=== PATIENT | female | born 1970 | race Caucasian/White ===

== ENCOUNTER 2017-03-07 09:56 | Emergency (ER) | payer OTHER ==
[2017-03-07 10:00] VITALS: BP 121/68; PULSE 75; TEMP 97.7; BMI 20.1
--- NOTE | 2017-03-07 11:18 | PDOC ---
History of Present Illness - General Chief Complaint: Pain Stated Complaint: PAIN/ NECK, ARM Time Seen by Provider: 03/07/17 10:22 History Source: Patient Exam Limitations: No Limitations - History of Present Illness Initial Comments: 03/07/17 11:18 With Belgian interpretation phone, patient came for evaluation of right arm intermittent tenderness that is spasmodic in nature. Patient reports having pain to her arm for 5 minutes, spontaneously resolved, then reoccurs. States this pain has been coming on and off for the past 2 weeks. I'll has moved into her upper neck and wraparound scalp to the right side. Denies any changes in exercise, heavy lifting, strenuous activity. Denies any recent trauma or car accident. Denies any incident with neck. Has taken no medication or treatment to relief of same. 03/07/17 11:19 03/07/17 11:36 Occurred: reports: just prior to arrival Severity: reports: mild, moderate Pain Location: reports: head, neck Method of Injury: Yes: unknown Modifying Factors: improves with: None Loss of Consciousness: no loss of consciousness Associated Symptoms (Fall): denies symptoms (denies chest pain, palpitations, shortness of breath, diaphoresis, or any other cardiac type related symptoms. Has no history of heart disease.) Past History - Travel Traveled outside of the country in the last 30 days: No Close contact w/someone who was outside of country & ill: No - Past Medical History Allergies/Adverse Reactions: Allergies Allergy/AdvReac Type Severity Reaction Status Date / Time No Known Allergies Allergy Verified 03/07/17 10:00 Home Medications: Ambulatory Orders Cyclobenzaprine HCl [Flexeril 10 mg] 10 mg PO BID PRN #14 tablet 03/07/17 GI Disorders: Yes (REFLUX) Hypercholesterolemia: Yes - Psycho/Social/Smoking Cessation Hx Anxiety: No Suicidal Ideation: No Smoking History: Never smoked Have you smoked in the past 12 months: No Hx Alcohol Use: No Drug/Substance Use Hx: No Substance Use Type: None Trauma Specific PMHX - Complaint Specific PMHX Back Injury: No Neck Injury: No Review of Systems - Review of Systems Able to Perform ROS?: Yes Is the patient limited Macedonian proficient: Yes Constitutional: Yes: See HPI. No: Symptoms Reported, Fever Respiratory: Yes: Symptoms reported, See HPI ABD/GI: Yes: See HPI, Other (no right upper quadrant tenderness or pain). No: Symptoms Reported, Constipated, Diarrhea, Nausea : No: Symptoms Reported Musculoskeletal: Yes: Symptoms Reported Neurological: Yes: Symptoms reported, See HPI, Headache, Numbness (with pain associated to the right arm) All Other Systems: Reviewed and Negative *Physical Exam - Vital Signs Last Vital Signs Temp Pulse Resp BP Pulse Ox 97.7 F 75 20 121/68 100 03/07/17 09:57 03/07/17 09:57 03/07/17 09:57 03/07/17 09:57 03/07/17 09:57 - Physical Exam General Appearance: Yes: Nourished, Appropriately Dressed, Apparent Distress, Mild Distress HEENT: positive: KATHLEEN, Normal ENT Inspection, Normal Voice, TMs Normal, Pharynx Normal Neck: positive: Tender (tenderness reproduced along the sternocleidomastoid insertions at occiput, which reproduces scalp tenderness to the right side and frontal headache pain that patient reported. Also has very tight tense musculature of the upper trapezius with mild spasm palpated. Range of motion is mildly limited but neck is supple. No C-spine tenderness), Supple. negative: Lymphadenopathy (R), Lymphadenopathy (L) Respiratory/Chest: positive: Lungs Clear, Normal Breath Sounds Gastrointestinal/Abdominal: positive: Soft. negative: Tender, Distended, Guarding, Rebound, Tenderness, Hepatomegaly, Spleenomegaly Extremity: positive: Normal Capillary Refill, Normal Inspection, Normal Range of Motion Integumentary: positive: Normal Color, Dry, Warm Neurologic: positive: tagman II-XII NML intact, Fully Oriented, Alert, Normal Mood/ Affect, Normal Response, Motor Strength 5/5 Progress Note - Progress Note Progress Note: Cervical spine/muscular spasm. Causing impingement, will treat with NSAIDs and cyclobenzaprine *DC/Admit/Observation/Transfer Diagnosis at time of Disposition: Cervical muscle strain Qualifiers: Encounter type: initial encounter Qualified Code(s): S16.1XXA - Strain of muscle, fascia and tendon at neck level, initial encounter - Discharge Dispostion Disposition: HOME Condition at time of disposition: Stable Admit: No - Prescriptions Prescriptions: Cyclobenzaprine HCl [Flexeril 10 mg] 10 mg PO BID PRN #14 tablet PRN Reason: spasm - Referrals Referrals: Billy Quiles MD [Primary Care Provider] - - Patient Instructions Printed Discharge Instructions: DI for Cervical Muscle Strain Additional Instructions: Rest, no heavy lifting or exercise until pain is resolved Hot soaks to neck and low back as often as possible/hot showers or Jacuzzis No massage or therapy until spasm is gone Continue ibuprofen 2-200 mg tablets every 6 hours for the next 3 days then as needed for pain and swelling Cyclobenzaprine 1-10mg every 8 hours as needed for spasm If not significant improvement within 24 hours with medication and rest regime, followup with private physician for change in medications and /or therapy.
[2017-03-07] MEDS ORDERED: KETOROLAC TROMETHAMINE 60 MG/2 ML VIAL IM ONE (11:21)
[2017-03-07] MEDS ORDERED: KETOROLAC TROMETHAMINE 60 MG/2 ML VIAL ONE (11:23)
== END 2017-03-07 11:42 | disposition home or self-care (01) ==
LOC: JERFT 09:56
PROC: 3E0233Z Introduction of Anti-inflammatory into Muscle, Percutaneous Approach (ICD-10-PCS; principal; 2017-03-07)
DX: S16.1XXA Strain of muscle, fascia and tendon at neck level, initial encounter (principal); K21.9 Gastro-esophageal reflux disease without esophagitis
CPT/HCPCS: 96372; 99281-25

== ENCOUNTER 2017-06-07 10:15 | Day surgery (SDC) | payer OTHER ==
[2017-06-06 14:45] VITALS: BMI 22.3
[2017-06-07 11:49] VITALS: TEMP 97.5
[2017-06-07 13:12] VITALS: BP 97/63; PULSE 66
--- NOTE | 2017-06-08 15:28 | PATH ---
Surgical Pathology Report Patient Name: THEE CLAIRE [facility]. Rec. #: [id number] /Age/Gender: 1970 (Age: 47) / F Account: [id number] Location: [facility]-ENDOSCOPY Taken: 06/07/2017 Received: 06/07/2017 Reported: 06/08/2017 Physicians: Jarrett Gonzalez M.D. Specimen(s) Received A: BX NODULAR GASTRITIS IN ANTRUM B: BX GASTRIC BODY C: BX DISTAL ESOPHAGUS D: BX SIGMOID POLYP Clinical History GERD, incontinent stool Gastritis and body, nodular gastritis in antrum, irregular Z line in GE junction, redundant colon, diverticulosis, sigmoid polyps, small hemorrhoids Final Diagnosis A. ANTRUM, NODULAR GASTRITIS, BIOPSY: MODERATE CHRONIC ACTIVE GASTRITIS WITH INTESTINAL METAPLASIA. IMMUNOSTAIN IS NEGATIVE FOR H. PYLORI ORGANISMS. B. GASTRIC BODY, BIOPSY: MILD CHRONIC GASTRITIS. IMMUNOSTAIN IS NEGATIVE FOR H. PYLORI ORGANISMS. C. DISTAL ESOPHAGUS, BIOPSY: MILDLY HYPERPLASTIC ESOPHAGEAL (SQUAMOUS) MUCOSA WITH RARE INTRAEPITHELIAL EOSINOPHILS, CONSISTENT WITH REFLUX ESOPHAGITIS. NO COLUMNAR EPITHELIUM/INTESTINAL METAPLASIA IS IDENTIFIED. D. SIGMOID, POLYPS, POLYPECTOMY: HYPERPLASTIC POLYP. COLONIC MUCOSA SHOWING BENIGN/REACTIVE LYMPHOID AGGREGATES. Electronically Signed Jazmine Ledesma M.D. Gross Description A. Received in formalin, labeled "biopsy nodular gastritis in antrum" are 4 moore, irregular portions of soft tissue ranging from 0.3-0.5 cm. in greatest dimension. The specimens are submitted in toto in one cassette. B. Received in formalin, labeled "biopsy gastric body" is a moore, irregular portion of soft tissue measuring 0.6 cm. in greatest dimension. The specimen is submitted in toto in one cassette. C. Received in formalin, labeled "biopsy distal esophagus" is a moore, irregular portion of soft tissue measuring 0.3 cm. in greatest dimension. The specimen is submitted in toto in one cassette. D. Received in formalin, labeled "biopsy sigmoid polyps" are 3 moore, irregular portions of soft tissue ranging from 0.1-0.5 cm. in greatest dimension. The specimens are submitted in toto in one cassette. DL/06/07/2017 saudi/06/07/2017
== END 2017-06-07 12:50 | disposition home or self-care (01) ==
LOC: JASU-ENDO 10:15
PROVIDERS: ATTEND Internal Medicine Gastroenterology
PROC: 0DB58ZX Excision of Esophagus, Via Natural or Artificial Opening Endoscopic, Diagnostic (ICD-10-PCS; 2017-06-07)
PROC: 0DB68ZX Excision of Stomach, Via Natural or Artificial Opening Endoscopic, Diagnostic (ICD-10-PCS; 2017-06-07)
PROC: 0DBN8ZX Excision of Sigmoid Colon, Via Natural or Artificial Opening Endoscopic, Diagnostic (ICD-10-PCS; principal; 2017-06-07 11:30)
DX: K64.8 Other hemorrhoids (principal); D12.5 Benign neoplasm of sigmoid colon; K29.70 Gastritis, unspecified, without bleeding; R10.13 Epigastric pain; K21.0 Gastro-esophageal reflux disease with esophagitis
CPT/HCPCS: 88305-TC; 88342-TC